=== PATIENT | male | born 2000 | race Two or more races ===

== ENCOUNTER 2019-05-20 16:09 | Emergency (ER) | payer OTHER ==
[~2019-05-20] VITALS: Ht 172.7 cm; Wt 104.3 kg
[2019-05-20] MEDS ORDERED: NKM (16:23)
--- NOTE | 2019-05-20 16:56 | NUR ---
ED Nurse Note: Patient walked into ED from home c/o sorethroat for 1.5 week and left hand 3rd digit swelling. Patient states he fell on it 3 days ago. Skin intact.
[2019-05-20 16:58] VITALS: BP 126/69
--- NOTE | 2019-05-20 16:59 | NUR ---
ED Nurse Note: ERMD at bedside
--- NOTE | 2019-05-20 17:10 | NUR ---
ED Nurse Note: xray at bedside
--- NOTE | 2019-05-20 17:34 | Emergency Room Report ---
History of Present Illness General Chief Complaint: Sore Throat Source: Patient Present Illness HPI 19-year-old male with no symptom past medical history here complaining of 1 week of sore throat, rating a 10 out of 10, cough and congestion. Has not taken medication for symptom relief. Denies fever and chills, abdominal pain, nausea vomiting, sick contacts and recent travel. Patient also complains of 1 day of left middle finger pain and swelling. Does not recall how he got himself injured. Rating pain 10 out of 10 without radiation. Has full range of motion however complains of a 10 out of 10 pain with bending the finger. Obvious ecchymosis noted left third phalanx, denying tingling and numbness. No motor or sensory deficits noted. Patient has not taken medication for his pain. Allergies: Coded Allergies: No Known Allergies (Unverified , 05/20/19) Patient History Past Medical History: see triage record Past Surgical History: unable to obtain Pertinent Family History: none Immunizations: UTD Reviewed Nursing Documentation: PMH: Agreed; PSxH: Agreed Nursing Documentation-PMH Past Medical History: No Stated History Review of Systems All Other Systems: negative except mentioned in HPI Physical Exam Vital Signs Date Time Temp Pulse Resp B/P (MAP) Pulse Ox O2 Delivery O2 Flow Rate FiO2 05/20/19 16:17 98.1 2 17 126/69 (88) 96 Room Air Sp02 EP Interpretation: reviewed, normal General Appearance: no apparent distress, alert, GCS 15, non-toxic Head: normocephalic, atraumatic Eyes: bilateral eye normal inspection, bilateral eye PERRL ENT: hearing grossly normal, no angioedema, normal voice, nasal congestion, pharyngeal erythema, tonsillar exudate Neck: full range of motion, supple, thyroid normal, no meningismus, supple/symm /no masses Respiratory: chest non-tender, lungs clear, normal breath sounds, no rhonchi, no retraction, no wheezing, speaking full sentences Cardiovascular #1: regular rate, rhythm, no edema, no murmur Cardiovascular #2: 2+ radial (R), 2+ radial (L) Gastrointestinal: normal bowel sounds, non tender, soft, non-distended, no guarding, no rebound Genitourinary: no CVA tenderness Musculoskeletal: back normal, tender - Left third finger, swelling - Left third finger Neurologic: alert, motor strength/tone normal, oriented x3, sensory intact, responsive, speech normal Psychiatric: judgement/insight normal, memory normal, mood/affect normal, no suicidal/homicidal ideation Skin: no rash, other - Ecchymosis over left third phalanx Lymphatic: no adenopathy Procedures Splinting Splinting : Consent: Verbal Location: Left third finger Pre-Made Type: metal Pre-Proc Neuro Vasc Exam: normal Post-Proc Neuro Vasc Exam: normal Patient Tolerated: Well Complications: None Medical Decision Making PA Attestation All diagnoses and treatment plans were reviewed and discussed with my supervising physician Dr. Carreno Diagnostic Impression: Primary Impression: Strep pharyngitis Additional Impression: Fracture of middle phalanx of finger ER Course 19-year-old male with no symptom past medical history here complaining of 1 week of sore throat, rating a 10 out of 10, cough and congestion. Has not taken medication for symptom relief. Denies fever and chills, abdominal pain, nausea vomiting, sick contacts and recent travel. Patient also complains of 1 day of left middle finger pain and swelling. Does not recall how he got himself injured. Rating pain 10 out of 10 without radiation. Has full range of motion however complains of a 10 out of 10 pain with bending the finger. Obvious ecchymosis noted left third phalanx, denying tingling and numbness. No motor or sensory deficits noted. Patient has not taken medication for his pain. Ddx considered but are not limited to: strep pharyngitis, URI, tonsillitis, peritonsillar abscess, influneza, finger fracture versus sprain versus contusion Vital signs: are WNL, pt. is afebrile H&PE are most consistent with: Fracture of left middle phalanx, strep pharyngitis ORDERS: Left hand x-ray, ibuprofen, Augmentin, Phenergan, Flonase ED INTERVENTIONS: Splint DISCHARGE: At this time pt. is stable for d/c to home. Will provide printed patient care instructions, and any necessary prescriptions. Care plan and follow up instructions have been discussed with the patient prior to discharge. Patient to follow-up with site acquisition specialist, take medication as directed, keep the splint on. Avoid doing strenuous physical activity with affected side. If worsening symptoms return to the emergency room Other X-Ray Diagnostic Results Other X-Ray Diagnostic Results : X-Ray ordered: left hand # of Views/Limited Vs Complete: 3 View Indication: Pain EP Interpretation: Amanda OWENS Xray: Interpretation reviewed, by supervising MD, and agrees with findings. Interpretation: other - fx left third phalanx Impression: Other - fx left third finger Electronically Signed by: Griselda Wolf PA-C Last Vital Signs Date Time Temp Pulse Resp B/P (MAP) Pulse Ox O2 Delivery O2 Flow Rate FiO2 05/20/19 16:58 98.1 78 17 126/69 96 Room Air Disposition: HOME, SELF-CARE Condition: Stable Scripts Fluticasone Propionate (Flonase Allergy Relief) 9.9 Ml [place].susp 2 PUFFS NS BID, #10 ML Prov: Griselda Roe 05/20/19 Amoxicillin/Potassium Clav 875-125* (AUGMENTIN 875-125 TABLET*) 1 Each Tablet 1 TAB ORAL TWICE A DAY for 10 Days, #20 TAB Prov: Griselda Roe 05/20/19 Ibuprofen (Ibu) 800 Mg Tablet 800 MG PO TID, #30 TAB Prov: Griselda Roe 05/20/19 Promethazine Hcl (PROMETHAZINE HCL*) 6.25 Mg/5 Ml Syrup 5 ML ORAL Q6H, #120 ML 0 Refills Prov: Griselda Roe 05/20/19 Patient Instructions: Finger Fracture, [id number], Sore Throat Additional Instructions: Take medication as directed, follow-up with site acquisition specialist regarding your fracture finger, if worsening symptoms return to the emergency room Griselda Roe May 20, 2019 17:34
[2019-05-20] MEDS ORDERED: IBU800 MG PO (17:42)
[2019-05-20] MEDS ORDERED: FLONASE ALLERG9.9 ML NS (17:42)
[2019-05-20] MEDS ORDERED: AUGMENTIN 875-1 EAC1 ORAL (17:42)
[2019-05-20] MEDS ORDERED: PROMETHAZI6.25 MG/1 ORAL (17:42)
--- NOTE | 2019-05-20 17:45 | NUR ---
ER DISCHARGE NOTE: Patient is cleared to be discharged per ERMD, pt is aox4, on room air, with stable vital signs. pt was given dc and prescription instructions, pt was able to verbalize understanding, pt id band removed without complications. pt is able to ambulate with steady gait. pt took all belongings.
[2019-05-20 17:47] VITALS: BP 121/70
--- NOTE | 2019-05-21 08:26 | Diagnostic Imaging Report ---
Indication: Pain, trauma, injury Technique: 3 views of the left middle finger Comparison: none Findings: There is a comminuted minimally distracted fracture of the middle phalanx. One of the fracture lines extends into the joint surface. No other acute fractures. No dislocations. The joint spaces are preserved Impression: Positive for third middle phalangeal fracture
== END 2019-05-20 17:45 | disposition home or self-care (01) ==
LOC: EMR 17:42
DX: J02.0 Streptococcal pharyngitis (principal); S62.623A Displaced fracture of middle phalanx of left middle finger, initial encounter for closed fracture; X58.XXXA Exposure to other specified factors, initial encounter; Y92.9 Unspecified place or not applicable
CPT/HCPCS: 29130; 99283

== ENCOUNTER 2019-06-03 15:28 | Emergency (ER) | payer OTHER ==
[~2019-06-03] VITALS: Ht 172.7 cm; Wt 104.3 kg
[~2019-06-03 15:28] MED LIST: AUGMENTIN 875-1 EAC1 ORAL; FLONASE ALLERG9.9 ML NS; IBU800 MG PO; NKM; PROMETHAZI6.25 MG/1 ORAL
[2019-06-03 15:59] VITALS: BP 132/64
--- NOTE | 2019-06-03 16:00 | NUR ---
ED Nurse Note:pt. came with URI and sore throat
--- NOTE | 2019-06-03 16:00 | Emergency Room Report ---
History of Present Illness General Chief Complaint: Upper Respiratory Illness Source: Patient Present Illness HPI 19-year-old male with no significant past medical history here complaining of 3 weeks of cough and congestion, and 2 days of ingrown toenail. Patient rating pain in his toe 7 out of 10 without radiation. Reports that he was seen here 3 weeks ago for cough and congestion, was given prescription for antibiotics, cough syrup, and butyryl inhaler however cough continues to be lingering. Reports that he does not have a primary care physician has not found the need to find one for follow-up. Reports that he also has been getting ingrown toenails in the past and usually goes to the emergency department to have it removed. Denies any fever and chills at this time. Has not taken medication for symptom relief. Patient continues to smoke marijuana. Allergies: Coded Allergies: No Known Allergies (Unverified , 05/20/19) Patient History Past Medical History: see triage record Past Surgical History: unable to obtain Pertinent Family History: none Immunizations: UTD Reviewed Nursing Documentation: PMH: Agreed; PSxH: Agreed Nursing Documentation-PMH Past Medical History: No Stated History Review of Systems All Other Systems: negative except mentioned in HPI Physical Exam Vital Signs Date Time Temp Pulse Resp B/P (MAP) Pulse Ox O2 Delivery O2 Flow Rate FiO2 06/03/19 15:53 98.4 70 16 132/64 (86) 99 Room Air Sp02 EP Interpretation: reviewed, normal General Appearance: no apparent distress, alert, GCS 15, non-toxic Head: normocephalic, atraumatic Eyes: bilateral eye normal inspection, bilateral eye PERRL ENT: hearing grossly normal, normal pharynx, no angioedema, normal voice Neck: full range of motion, supple, thyroid normal, no meningismus, no carotid bruits, supple/symm/no masses Respiratory: chest non-tender, lungs clear, normal breath sounds, no rhonchi, no retraction, no wheezing, speaking full sentences Cardiovascular #1: regular rate, rhythm, no edema, no murmur, normal capillary refill Gastrointestinal: normal bowel sounds, non tender, soft, non-distended, no guarding, no rebound Rectal: deferred Musculoskeletal: back normal, inflammation - Ingrown toenail infection Neurologic: alert, motor strength/tone normal, EOM palsy, oriented Psychiatric: judgement/insight normal, memory normal, mood/affect normal, no suicidal/homicidal ideation Skin: no rash Lymphatic: no adenopathy Medical Decision Making PA Attestation Diagnosis and treatment plans were reviewed and discussed with my supervising physician Dr. Stewart Diagnostic Impression: Primary Impression: Bronchitis Additional Impression: Ingrown toenail ER Course 19-year-old male with no significant past medical history here complaining of 3 weeks of cough and congestion, and 2 days of ingrown toenail. Patient rating pain in his toe 7 out of 10 without radiation. Reports that he was seen here 3 weeks ago for cough and congestion, was given prescription for antibiotics, cough syrup, and butyryl inhaler however cough continues to be lingering. Reports that he does not have a primary care physician has not found the need to find one for follow-up. Reports that he also has been getting ingrown toenails in the past and usually goes to the emergency department to have it removed. Denies any fever and chills at this time. Has not taken medication for symptom relief. Patient continues to smoke marijuana. Ddx considered but are not limited to: bronchitis, PNA, URI viral, bacterial bronchitis, ingrown toenail with infection, ingrown toenail without infection Vital signs: are WNL, pt. is afebrile H&PE are most consistent with: Ingrown toenail with infection, viral bronchitis ORDERS: Keflex, Phenergan, prednisone, albuterol, ibuprofen ED INTERVENTIONS: None required at this time. DISCHARGE: At this time pt. is stable for d/c to home. Will provide printed patient care instructions, and any necessary prescriptions. Care plan and follow up instructions have been discussed with the patient prior to discharge. Patient to follow-up with fire support man and family care physician as patient needs to follow-up since symptoms get chronic. It is not advised to remove the toenail in the emergency department as patient does have to follow-up with fire support man. Start taking antibiotics today. Avoid wearing tight shoes. Avoid smoking marijuana as well exacerbate cough and congestion Last Vital Signs Date Time Temp Pulse Resp B/P (MAP) Pulse Ox O2 Delivery O2 Flow Rate FiO2 06/03/19 15:53 98.4 70 16 132/64 (86) 99 Room Air Disposition: HOME, SELF-CARE Condition: Stable Scripts Albuterol Sulfate (VENTOLIN HFA) 18 Gm Hfa.aer.ad 2 PUFFS INH EVERY 6 HOURS, #18 GM 0 Refills Prov: Griselda Roe 06/03/19 Promethazine Hcl (PROMETHAZINE HCL*) 6.25 Mg/5 Ml Syrup 5 ML ORAL Q6H, #120 ML 0 Refills Prov: Griselda Roe 06/03/19 Prednisone* (PREDNISONE*) 20 Mg Tablet 40 MG ORAL DAILY for 5 Days, #10 TAB Prov: Griselda Roe 06/03/19 Ibuprofen* (MOTRIN*) 600 Mg Tablet 600 MG ORAL Q6H PRN for For Pain, #30 TAB Prov: Griselda Roe 06/03/19 Cephalexin* (KEFLEX*) 500 Mg Capsule 500 MG ORAL EVERY 6 HOURS for 7 Days, #28 CAP Prov: Griselda Roe 06/03/19 Patient Instructions: Acute Bronchitis, [id number], Ingrown Toenail Additional Instructions: Take medication as directed, follow-up with a fire support man regarding your ingrown toenail, if worsening symptoms return to the emergency room Griselda Roe Jun 03, 2019 16:00
[2019-06-03] MEDS ORDERED: PREDNISONE20 MG ORAL (16:03)
[2019-06-03] MEDS ORDERED: PROMETHAZI6.25 MG/1 ORAL (16:03)
[2019-06-03] MEDS ORDERED: CEPHALEXIN500 MG ORAL (16:03)
[2019-06-03] MEDS ORDERED: VENTOLIN HFA18 GM INH (16:03)
[2019-06-03] MEDS ORDERED: IBUPROFEN600 MG ORAL (16:03)
[2019-06-03 16:09] VITALS: BP 132/64
--- NOTE | 2019-06-03 16:10 | NUR ---
ER DISCHARGE NOTE: Patient is cleared to be discharged per ERMD, pt is aox4, on room air, with stable vital signs. pt was given dc and prescription instructions, pt was able to verbalize understanding, pt is able to ambulate with steady gait. pt took all belongings.
== END 2019-06-03 16:10 | disposition home or self-care (01) ==
LOC: EMR 15:59
DX: J20.9 Acute bronchitis, unspecified (principal); L60.0 Ingrowing nail; F12.90 Cannabis use, unspecified, uncomplicated
CPT/HCPCS: 99282